=== PATIENT | male | born 1950 | race Caucasian/White ===

== ENCOUNTER 2023-08-05 09:22 | Emergency (ER) | payer MEDICARE, SELFPAY ==
--- NOTE | ~2023-08-05 | XR_ITS ---
EXAMINATION: [id number] INDICATION: Left-sided chest pain TECHNIQUE: A frontal view of the chest and three views of the left ribs were obtained. COMPARISON: None. FINDINGS: The lungs are free of acute opacities. No pleural effusion or pneumothorax. The cardiomedia stinal silhouette is normal. There is a possible nondisplaced anterolateral fracture of the left ambrose nth rib. IMPRESSION: 1. Possible nondisplaced anterolateral fracture of the left seventh rib. 2. No acute cardiopulmonary abnormality. Reviewed, dictated and finalized at location L. [facility] [employer]
--- NOTE | 2023-08-05 09:28 | ED.FALL ---
HPI - Fall General Chief Complaint: Fall Stated Complaint: Fall Time Seen by Provider: 08/05/23 09:28 Source: patient Mode of arrival: ambulatory Limitations: no limitations History of Present Illness HPI Narrative: Terrance is a 72-year-old male patient presenting to the clinic today with complaints of left lower lateral rib pain after a fall yesterday. He reports he tripped over a stick yesterday and landed on the wood pile injuring the left ribs. Reports he is having pain with movement as well as taking deep breaths over the left lateral ribs Related Data Home Medications Medication Instructions Recorded Confirmed hydrochlorothiazide 25 mg tablet 25 mg PO DAILY 08/05/23 08/05/23 lisinopril 40 mg tablet 40 mg PO DAILY 08/05/23 08/05/23 rosuvastatin 40 mg tablet 40 mg PO DAILY 08/05/23 08/05/23 Review of Systems Review of Systems: Pertinent positives per HPI. Patient denies any fever, chills, rash, headache, visual changes, dizziness, cough, runny nose, sore throat, shortness of breath, chest pain, palpitations, nausea, vomiting, diarrhea, constipation, abdominal pain, or any urinary issues. PMFSH Comments At the time of my signature, I reviewed and agree with the nursing past medical, surgical, social, and family history. There is no relevant family history pertinent to the patient complaint. Exam Narrative: General: Well-developed, well nourished, in no apparent distress Head: Normocephalic, atraumatic. Cardio: Regular rate and rhythm, s1 and s2 normal, no murmur appreciated. Resp: Clear to auscultation bilaterally, no rhonchi, rales, wheezing or rubs. Musculoskeletal: No deformity, non-tender to palpation, grossly normal range of motion, muscle strength strong and equal, peripheral pulse strong, no edema, no cyanosis, normal gait and station Course Course Emergency Course: Portions of this record may have been created with voice recognition software. Level of Care: Express Care Visit Vital Signs Vital signs: Vital Signs Temperature 36.8 C 08/05/23 09:38 Pulse Rate 55 L 08/05/23 09:38 Respiratory Rate 18 08/05/23 09:38 Blood Pressure 130/53 L 08/05/23 09:38 Pulse Oximetry 99 08/05/23 09:38 Temperature 36.8 C 08/05/23 09:38 Pulse Rate 55 L 08/05/23 09:38 Respiratory Rate 18 08/05/23 09:38 Blood Pressure 130/53 L 08/05/23 09:38 Pulse Oximetry 99 08/05/23 09:38 Vital signs reviewed MDM - Fall MDM Narrative Medical decision making narrative: At the time of visit patient is resting comfortably on the exam table. Patient appears to be nontoxic. X-ray shows a possible nondisplaced fracture to the left 7th lateral anterior rib. I suspect patient has a rib contusion. Supportive measures were discussed with the patient and they voiced understanding discharge instructions and agrees to treatment plan. Return precautions reviewed Differential Diagnosis Differential diagnosis: Likely other (Rib contusion, rib fracture, ground level fall) Discharge Plan Discharge Clinical Impression: Contusion of rib on left side Qualifiers: Encounter type: initial encounter Qualified Code(s): S20.212A - Contusion of left front wall of thorax, initial encounter Closed rib fracture Qualifiers: Encounter type: initial encounter Rib fracture type: single rib Laterality: left Qualified Code(s): S22.32XA - Fracture of one rib, left side, initial encounter for closed fracture Patient Disposition: Home, Self-Care Condition: Stable Instructions: Antibiotic Form, Rib Fracture (ED), Rib Contusion (ED) Additional Instructions: X-ray shows possible nondisplaced rib fracture on the anterior lateral 7th rib May take Tylenol/Motrin as needed for pain May use heat or ice to the affected area May use blue emu, lidocaine patches, or asper cream to affected area- do not apply heat or ice directly over cream- can cause burn. May splint the area with your hand when coughing, deep angle
[2023-08-05 09:38] VITALS: BP 130/53; PULSE 55; RESP 18; TEMP 36.8; O2SAT 99
== END 2023-08-05 10:05 | disposition home or self-care (01) ==
PROVIDERS: Emergency Provider Nurse Practitioner Family
DX: S20.212A Contusion of left front wall of thorax, initial encounter (principal); S22.32XA Fracture of one rib, left side, initial encounter for closed fracture; Z79.899 Other long term (current) drug therapy; W01.198A Fall on same level from slipping, tripping and stumbling with subsequent striking against other object, initial encounter
CPT/HCPCS: 71101; 99213; G0463

== ENCOUNTER → 2023-10-21 09:41 | Outpatient (CLI) | payer MEDICARE, SELFPAY ==
--- NOTE | ~2023-10-21 | US_ITS ---
EXAMINATION: US aorta [facility] DATE: 10/21/2023 09:54 INDICATION: Abdominal aortic aneurysm. TECHNIQUE: Grayscale, color Doppler, and pulsed Doppler images of the aorta and common iliac arteries were obtained. COMPARISON: None. FINDINGS: The aorta is normal in caliber. The right common iliac artery is normal in caliber. The left common i liac artery is normal in caliber. IMPRESSION: 1. No abdominal aortic aneurysm. Reviewed, dictated and finalized at location A. K CUTTER
== END ==
DX: Z13.6 Encounter for screening for cardiovascular disorders (principal)
CPT/HCPCS: 76706